=== PATIENT | male | born 1990 | race Asian ===

== ENCOUNTER 2021-06-11 18:46 | Emergency (ER) | payer BC ==
[~2021-06-11] VITALS: Ht 170.2 cm; Wt 77.0 kg
[2021-06-11] MEDS ORDERED: SODIUM CHLORIDE 0.9% 1,000 ML IV ONE (21:15)
[2021-06-11 21:38] LABS: BASOPHILS % 0.4 % (0.0-2.0); EOSINOPHILS % 3.4 % (0.0-5.0); HEMATOCRIT. 42.5 % (42.0-52.0); HEMOGLOBIN. 14.6 g/dL (14.0-18.0); LYMPHOCYTES % 14.9 % (20.0-50.0); MEAN CORPUSCULAR HEMOGLOBIN 30.4 pg (28.0-32.0); MEAN PLATELET VOLUME 6.9 fl (7.4-10.4); MONOCYTES % 5.8 % (2.0-8.0); NEUTROPHILS % 75.5 % (40.0-76.0); PLATELET 251 x1000/uL (130-400); RED BLOOD CELL COUNT 4.78 mill/uL (4.7-6.1); RED CELL DISTRIBUTION WIDTH 13.2 % (11.6-14.6)
[2021-06-11 21:43] LABS: CHLORIDE 108 mEq/L (98-107)
[2021-06-11 22:14] VITALS: BP 121/70
== END 2021-06-11 22:50 | disposition home or self-care (01) ==
LOC: ER 18:46
DX: R55 Syncope and collapse (principal); R11.10 Vomiting, unspecified; F12.10 Cannabis abuse, uncomplicated
CPT/HCPCS: 36415; 80053; 83690; 85025; 93005; 96360; 99284; J7030